=== PATIENT | female | born 2000 | race African-American/Black ===

== ENCOUNTER 2021-04-29 19:31 | Emergency (ER) | payer SELFPAY ==
[~2021-04-29] VITALS: Ht 170.2 cm; Wt 85.6 kg
[2021-04-29 20:55] LABS: BASOPHILS % (AUTO) 1 % (0-1); EOSINOPHILS % (AUTO) 0 % (1-7); LYMPHOCYTES % (AUTO) 32 % (22-44); MEAN CORPUSCULAR HEMOGLOBIN 25.1 pg (27.0-34.8); MEAN CORPUSCULAR HGB CONC 32.5 g/dL (32.4-35.8); MEAN PLATELET VOLUME 9.5 fL (7.4-10.4); MONOCYTES % (AUTO) 8 % (2-9); NEUTROPHILS % (AUTO) 59 % (42-75); PLATELET COUNT 347 x10^3/uL (130-400); RED BLOOD COUNT 4.78 x10^6/uL (3.82-5.3); RED CELL DISTRIBUTION WIDTH 13.8 % (9.6-15.2)
[2021-04-29 20:58] LABS: ALBUMIN 3.4 g/dL (3.4-5.0); ANION GAP 7 mmol/L (5-15); CALCIUM 9.3 mg/dL (8.5-10.1); CHLORIDE 105 mmol/L (98-107); CREATININE 0.77 mg/dL (0.55-1.02)
[2021-04-29 21:01] VITALS: BP 106/60
--- NOTE | 2021-04-29 21:38 | NUR ---
ALL RESULTS ARE BACK AT THIS TIME. CHART UP FOR RECHECK.
== END 2021-04-29 21:56 | disposition home or self-care (01) ==
LOC: ED 20:35
DX: R55 Syncope and collapse (principal); R42 Dizziness and giddiness; R11.0 Nausea; R00.2 Palpitations
CPT/HCPCS: 36415; 71045; 80048; 82040; 84443; 84703; 85025; 93005; 99285